=== PATIENT | female | born 1955 | race Caucasian/White ===

== ENCOUNTER 2021-08-21 08:43 | Emergency (ER) | payer MEDICARE ==
[~2021-08-21] VITALS: Ht 167.6 cm; Wt 91.0 kg
[2021-08-21 11:19] LABS: HEMATOCRIT 46.9 % (37.0-47.0); HEMOGLOBIN 15.3 g/dl (12.0-16.0); IMMATURE GRANULOCYTES 0.3 % (0.0-5.0); MEAN CELL VOLUME 95.3 fL CALC (80.0-100.0); MEAN CORPUSCULAR HGB 31.1 pG CALC (26.0-32.0); MEAN CORPUSCULAR HGB CONC 32.6 g/dL CAL (32.0-36.0); NEUT# 5.83 thou/uL (2.00-7.15); RED BLOOD COUNT 4.92 mill/uL (4.20-5.60); RED CELL DISTRI WIDTH 13.1 % (11.5-15.5)
[2021-08-21 11:34] LABS: ALBUMIN 4.2 g/dL (3.2-5.0); ALKALINE PHOSPHATASE 99 u/l (38-126); ANION GAP 12 (6-22 (CALC)); BILIRUBIN, TOTAL 1.1 mg/dL (0.0-1.4); BUN 13 mg/dL (8-23); BUN/CREATININE RATIO 18 (12-20 (CALC)); CARBON DIOXIDE 28 mmol/l (22-30); CHLORIDE 102 mmol/l (95-108); CREATININE 0.7 mg/dL (0.5-1.0); GFR > 60 ML/MIN (>=60 (CALC)); GFR FOR AFR.AMER. > 60 ML/MIN (>=60 (CALC)); POTASSIUM 3.5 mmol/l (3.5-5.1); SGOT/AST 47 u/l (9-36); SODIUM 138 mmol/l (137-146)
[2021-08-21 13:18] VITALS: BP 139/78
[2021-08-21] MEDS ORDERED: ZPAK PO ×2 (13:28→14:01)
== END 2021-08-21 14:00 | disposition home or self-care (01) ==
LOC: ED 08:43
PROVIDERS: Emergency Medicine
DX: J18.9 Pneumonia, unspecified organism (principal); R91.8 Other nonspecific abnormal finding of lung field; K21.9 Gastro-esophageal reflux disease without esophagitis; F32.A Depression, unspecified; Z20.822 Contact with and (suspected) exposure to COVID-19
CPT/HCPCS: Q9967

== ENCOUNTER 2021-10-06 11:10 | Emergency (ER) | payer MEDICARE ==
[~2021-10-06] VITALS: Ht 167.6 cm; Wt 89.2 kg
[~2021-10-06 11:10] MED LIST: ZPAK PO
[2021-10-06] MEDS ORDERED: ZOLPIDEM10 MG PO (12:26)
[2021-10-06] MEDS ORDERED: FLEXERIL5 M1 PO (12:29)
[2021-10-06] MEDS ORDERED: NAPROXEN250 MG PO (12:30)
[2021-10-06] MEDS ORDERED: OMEPRAZOLE10 MG PO (12:30)
[2021-10-06] MEDS ORDERED: ALENDRONATE SOD70 MG PO (12:31)
[2021-10-06 13:26] VITALS: BP 133/73
== END 2021-10-06 13:26 | disposition home or self-care (01) ==
LOC: ED 11:10
DX: M25.531 Pain in right wrist (principal); K21.9 Gastro-esophageal reflux disease without esophagitis; F32.A Depression, unspecified